=== PATIENT | female | born 1960 | race Asian ===

== ENCOUNTER 2017-05-26 09:53 | Outpatient (CLI) | payer BC, OTHER | END 2017-05-26 19:33 | disposition home or self-care (01) | LOC: SMA 09:53 | DX: Z12.31 Encounter for screening mammogram for malignant neoplasm of breast (principal) | CPT/HCPCS: G0202 ==

== ENCOUNTER 2019-06-28 09:49 | Outpatient (CLI) | payer BC | END 2019-06-28 20:58 | disposition home or self-care (01) | LOC: SMA 09:49 | DX: Z12.31 Encounter for screening mammogram for malignant neoplasm of breast (principal) | CPT/HCPCS: 77067 ==

== ENCOUNTER 2021-05-07 14:11 | Outpatient (CLI) | payer BC | END 2021-05-07 20:50 | disposition home or self-care (01) | LOC: SMA 14:11 | DX: Z12.31 Encounter for screening mammogram for malignant neoplasm of breast (principal) | CPT/HCPCS: 77067 ==